=== PATIENT | female | born 1980 | race Caucasian/White ===

== ENCOUNTER 2021-02-01 01:11 | Emergency (ER) | payer OTHER ==
[~2021-02-01 01:11] MED LIST: ACETAMINOPHEN500 M1 PO; ASPIRIN CHEWABL81 MG PO; BENADRYL25 MG PO; DICLOFENAC SODI75 MG PO; IBUPROFEN800 MG PO; PERCOCET 5-3251 EACH PO
[2021-02-01] MEDS ORDERED: PERCOCET 5-3251 EACH PO ×2 (03:35→14:09)
== END 2021-02-01 03:05 | disposition home or self-care (01) ==
LOC: FER 01:11
DX: M25.511 Pain in right shoulder (principal); Z88.5 Allergy status to narcotic agent
CPT/HCPCS: 73030; J1100; J1885; J2405; J2800; J3010; J7050